=== PATIENT | male | born 1945 | race Caucasian/White ===

== ENCOUNTER 2025-05-16 22:50 | Emergency (ER) | payer MEDICARE ==
[2025-05-16] MEDS ORDERED: predniSONE 20 MG TAB ONE (23:25)
[2025-05-16] MEDS ORDERED: Magnesium 2 GM/50 ML BAG (IN WATER) ONE (23:25)
[2025-05-16 23:47] LABS: #Basophils 0.03 10x3/uL (0.0-0.2); #Eosinophils 0.31 10x3/uL (0.0-0.5); #Monocytes 1.07 10x3/uL (0.0-1.1); #Neutrophils 7.49 10x3/uL (1.5-8.4); %Basophils 0.3 % (0.0-2.0); %Eosinophils 2.9 % (0.0-6.0); %Lymphocytes 15.6 % (18.0-47.0); %Monocytes 10.1 % (0.0-10.0); %Neutrophils 70.9 % (40.0-75.0); Hematocrit 37.0 % (38.8-50.0); Hemoglobin 13.4 g/dL (13.5-17.5); Mean Corpuscular Hemoglobin 32.4 pg (27.0-33.0); Mean Corpuscular Volume 89.4 fL (81.2-95.1); Platelet Count 255 10x3/uL (150-450); Red Blood Cell (RBC) Count 4.14 10x6/uL (4.32-5.72); White Blood Cell (WBC) Count 10.57 10x3/uL (3.5-10.5)
[2025-05-17 00:05] LABS: ALT (SGPT) 21 U/L (Less than 45); AST (SGOT) 24 U/L (11-34); Albumin 3.7 g/dL (3.1-4.5); Alkaline Phosphatase 78 U/L (40-110); Anion Gap 13 mmol/L (10-20); BUN (Urea Nitrogen) 28 mg/dL (8.4-25.7); Bilirubin, Total 0.4 mg/dL (0.3-1.2); Calc. Creatinine Clearance 0 mL/min (70-130); Calcium 8.8 mg/dL (7.8-10.44); Carbon Dioxide 28 mmol/L (23-31); Chloride 101 mmol/L (98-107); Globulin 2.6 g/dL (2.4-3.5); Glucose 144 mg/dL (83-110); Potassium 3.2 mmol/L (3.5-5.1); Sodium 139 mmol/L (136-145)
[2025-05-17 00:06] LABS: Troponin I Less than 0.010 ng/mL (< 0.028)
[2025-05-17] MEDS ORDERED: Iopamidol 370 76% 100 ML VIAL ONE (10:28)
== END 2025-05-17 02:00 | disposition home or self-care (01) ==
LOC: CSHERS 22:50
DX: J45.901 Unspecified asthma with (acute) exacerbation (principal); R05.9 Cough, unspecified; E87.6 Hypokalemia; I48.91 Unspecified atrial fibrillation; K21.9 Gastro-esophageal reflux disease without esophagitis; E78.00 Pure hypercholesterolemia, unspecified; Z87.891 Personal history of nicotine dependence; Z79.01 Long term (current) use of anticoagulants; Z79.899 Other long term (current) drug therapy
CPT/HCPCS: 71045; 80053; 83880; 84484; 85025; 85379; 93005; 94640; 94760; J3475; 71275; 96365; 96366; J7512

== ENCOUNTER 2025-07-07 09:27 | Outpatient (CLI) | payer MEDICARE | END 2025-07-07 09:28 | disposition home or self-care (01) | LOC: CSHSLEEP 09:27 | PROVIDERS: ATTEND Internal Medicine | DX: G47.33 Obstructive sleep apnea (adult) (pediatric) (principal); K21.9 Gastro-esophageal reflux disease without esophagitis; J44.9 Chronic obstructive pulmonary disease, unspecified | CPT/HCPCS: 95811 ==